=== PATIENT | male | born 1945 | race Caucasian/White ===

== ENCOUNTER 2017-04-16 16:25 | Emergency (ER) | payer OTHER ==
[~2017-04-16] VITALS: Wt 107.3 kg
[~2017-04-16 16:25] MED LIST: APIX5TAB PO; ATOR20TA38 PO; CARV6.25 PO; LANT3I SC; LEVOTHYROXINE PO; LOSARTAN PO; METF500T4 PO; NOVO3I SC; SITA50TA2 PO
[2017-04-16 16:40] VITALS: Wt 107.3 kg
[2017-04-16] MEDS ORDERED: SOD CHLORIDE 0.9% 1,000 ML IV STA (17:26)
[2017-04-16 17:53] LABS: BASOPHILS % 0.4 % (0.0-2.0); EOSINOPHILS # 0.2 10^3/ul (0.0-0.5); EOSINOPHILS % 2.3 % (0.0-7.0); HEMOGLOBIN 13.2 g/dl (14.0-18.0); LYMPHOCYTES # 2.1 10^3/ul (0.8-2.9); LYMPHOCYTES % 20.9 % (15.0-51.0); MEAN CORPUSCULAR HGB CONC 33.8 g/dl (32.0-37.0); MEAN CORPUSCULAR VOLUME 91.5 fl (82.0-101.0); MEAN PLATELET VOLUME 9.8 fl (7.4-10.4); MONOCYTE # 0.8 10^3/ul (0.3-0.9); MONOCYTES % 8.4 % (0.0-11.0); NEUTROPHILS % 67.6 % (39.0-77.0); PLATELET COUNT 199 10^3/UL (140-415); RED BLOOD COUNT 4.26 10^6/ul (4.70-6.10); RED CELL DISTRIBUTION WIDTH 13.4 % (11.5-14.5); WHITE BLOOD COUNT 9.9 10^3/ul (4.8-10.8)
[2017-04-16 18:13] LABS: ALBUMIN 4.2 g/dl (3.3-4.9); ALBUMIN/GLOBULIN RATIO 1.35; BILIRUBIN,INDIRECT 0.4 mg/dl (0-1.1); BILIRUBIN,TOTAL 0.4 mg/dl (0.2-1.3); CALCIUM 9.2 mg/dl (8.4-10.2); CREATININE 2.68 mg/dl (0.61-1.24); POTASSIUM 4.8 mmol/L (3.5-5.1); TOTAL PROTEIN 7.3 g/dl (6.1-8.1)
[2017-04-16 18:49] LABS: ADD UMIC YES; UR ASCORBIC ACID NEGATIVE (NEGATIVE); UR BACTERIA FEW /HPF (NONE SEEN); UR BILIRUBIN (Dip) NEGATIVE (NEGATIVE); UR BLOOD (Dip) NEGATIVE (NEGATIVE); UR CLARITY CLEAR (CLEAR); UR COLOR YELLOW (YELLOW); UR GLUCOSE (Dip) 3+ mg/dL (NEGATIVE); UR KETONES (Dip) NEGATIVE (NEGATIVE); UR LEUKOCYTE ESTERASE (Dip) TRACE Leu/ul (NEGATIVE); UR MUCUS FEW /HPF (NONE SEEN); UR NITRITE (Dip) NEGATIVE (NEGATIVE); UR RBC 1 /HPF (0-5); UR SPECIFIC GRAVITY (Dip) 1.014 (1.003-1.030); UR SQUAMOUS EPITHELIAL CELL FEW /HPF (FEW); UR TOTAL PROTEIN (Dip) NEGATIVE (NEGATIVE); UR UROBILINOGEN (Dip) NEGATIVE (NEGATIVE)
[2017-04-16] MEDS ORDERED: SOD CHLORIDE 0.9% 1,000 ML IV ONE (18:53)
--- NOTE | 2017-04-16 19:08 | ERD ---
ER Documentation Chief Complaint Date/Time DATE: 04/16/17 TIME: 19:03 Chief Complaint strtd new diabetic meds 3 wks ago, no appet/esophgeal discomfort post mds HPI 72-year-old male presents with complaints of decreased appetite, fatigue which he believes is related to starting 3 new diabetes medications at the same time 3 weeks ago. He also says some irritation of his esophageal area which he feels is related to at least 1 of the tablet being too big .. He is able to swallow and tolerate p.o.'s and food, however. Prescribing physician was Dr. Cary. His new medications are Glucophage, INVOKANA, TRULICITY . He gets systolics injection once per week as well. Denies any sustained chest pain, vomiting, headaches, abdominal pain. ROS All systems reviewed and are negative except as per history of present illness. Medications Home Meds Active Scripts Insulin Aspart* (Novolog Insulin Pen*) 100 Unit/Ml Soln, 9 UNIT SC WITH MEALS for 30 Days Prov:JACINTO SNEED NP 10/18/15 Insulin Glargine* (Lantus*) 100 Unit/Ml Soln, 24 UNIT SC HS for 30 Days Prov:JACINTO SNEED NP 10/18/15 Metformin Hcl* (Metformin Hcl*) 500 Mg Tablet, 500 MG PO BID WITH MEALS, #30 TAB Prov:JACINTO SNEED NP 10/18/15 Sitagliptin* (Januvia*) 50 Mg Tab, 100 MG PO DAILY for 30 Days, TAB Prov:JACINTO SNEED NP 10/18/15 Carvedilol* (Coreg*) 6.25 Mg Tab, 3.125 MG PO BID for 30 Days, TAB Prov:JACINTO SNEED NP 10/18/15 Atorvastatin Calcium* (Atorvastatin Calcium*) 20 Mg Tab, 20 MG PO HS for 30 Days , TAB Prov:JACINTO SNEED NP 10/18/15 Apixaban* (Eliquis*) 5 Mg Tablet, 5 MG PO BID for 30 Days, TAB Prov:JACINTO SNEED NP 10/18/15 Reported Medications [Losartan ] No Conflict Check, 100 MG PO DAILY 06/02/13 [Levothyroxine] No Conflict Check, 75 MCG PO DAILY 06/02/13 Allergies Allergies: Coded Allergies: No Known Allergy (Unverified , 06/02/13) PMhx/Soc History of Surgery: No (Cataract surgery) Anesthesia Reaction: Yes Hx Neurological Disorder: No Hx Respiratory Disorders: No Hx Cardiac Disorders: Yes (atrial fib) Hx Psychiatric Problems: No Hx Miscellaneous Medical Probl: No Hx Alcohol Use: No Hx Substance Use: No Hx Tobacco Use: No Smoking Status: Never smoker Physical Exam Vitals Vital Signs Date Time Temp Pulse Resp B/P Pulse Ox O2 Delivery O2 Flow Rate FiO2 04/16/17 16:40 98.0 65 20 99/54 98 Physical Exam Const: [], [id number]. Head: Atraumatic Eyes: Normal Conjunctiva ENT: Normal External Ears, Nose and Mouth. Neck: Full range of motion..~ No meningismus. Resp: Clear to auscultation bilaterally Cardio: Regular rate and rhythm, no murmurs Abd: Soft, non tender, non distended. Normal bowel sounds Skin: No petechiae or rashes Back: No midline or flank tenderness Ext: No cyanosis, or edema Neur: Awake and alert Psych: Normal Mood and Affect Result Diagram: 04/16/17 1735 04/16/17 1735 Results 24 hrs Laboratory Tests Test 04/16/17 17:35 04/16/17 17:53 White Blood Count 9.910^3/ul Red Blood Count 4.2610^6/ul Hemoglobin 13.2g/dl Hematocrit 39.0% Mean Corpuscular Volume 91.5fl Mean Corpuscular Hemoglobin 31.0pg Mean Corpuscular Hemoglobin Concent 33.8g/dl Red Cell Distribution Width 13.4% Platelet Count 40144^3/UL Mean Platelet Volume 9.8fl Neutrophils % 67.6% Lymphocytes % 20.9% Monocytes % 8.4% Eosinophils % 2.3% Basophils % 0.4% Nucleated Red Blood Cells % 0.0/100WBC Neutrophils # (Manual) 710^3/ul Lymphocytes # 2.110^3/ul Monocytes # 0.810^3/ul Eosinophils # 0.210^3/ul Basophils # 0.010^3/ul Nucleated Red Blood Cells # 0.010^3/ul Sodium Level 136mmol/L Potassium Level 4.8mmol/L Chloride Level 108mmol/L Carbon Dioxide Level 16mmol/L Anion Gap 17 Blood Urea Nitrogen 40mg/dl Creatinine 2.68mg/dl Glucose Level 159mg/dl Calcium Level 9.2mg/dl Total Bilirubin 0.4mg/dl Direct Bilirubin 0.00mg/dl Indirect Bilirubin 0.4mg/dl Aspartate Amino Transf (AST/SGOT) 13IU/L Alanine Aminotransferase (ALT/SGPT) 30IU/L Alkaline Phosphatase 125IU/L Total Protein 7.3g/dl Albumin 4.2g/dl Globulin 3.10g/dl Albumin/Globulin Ratio 1.35 Lipase 148U/L Urine Color YELLOW Urine Clarity CLEAR Urine pH 5.0 Urine Specific [place] 1.014 Urine Ketones NEGATIVEmg/dL Urine Nitrite NEGATIVEmg/dL Urine Bilirubin NEGATIVEmg/dL Urine Urobilinogen NEGATIVEmg/dL Urine Leukocyte Esterase TRACELeu/ul Urine Microscopic RBC 1/HPF Urine Microscopic WBC 8/HPF Urine Squamous Epithelial Cells FEW/HPF Urine Bacteria FEW/HPF Urine Mucus FEW/HPF Urine Hemoglobin NEGATIVEmg/dL Urine Glucose 3+mg/dL Urine Total Protein NEGATIVEmg/dl Current Medications Medications (Trade) Dose Ordered Sig/Zuleyma Route PRN Reason Start Time Stop Time Status Last Admin Dose Admin Sodium Chloride 1,000 ml @ 1,000 mls/hr Q1H STAT IV 04/16/17 17:26 04/16/17 18:25 DC 04/16/17 17:46 Sodium Chloride (NS) 1,000 ml @ 0 mls/hr Q0M ONCE IV 04/16/17 18:53 04/16/17 19:08 DC Procedures/MDM EKG: Rate/Rhythm: Irregular rhythm with atrial fibrillation. Rate equals 72 QRS, ST, T-waves: [No changes consistent w/ acute ischemia] Impression: [No evidence of ischemia or arrhythmia]. Impression-rate controlled atrial fibrillation CBC shows no acute abnormalities. Glucose is 159. BUN and creatinine are 40 and 2.68. Bicarb is 16. Urine is negative for ketones. There are trace leukocytes and a few bacteria. Urine was sent for culture. Patient was given 1 L normal saline IV. Patient presents with multiple complaints possibly related to new diabetes regimen. Patient shows no signs of ketoacidosis or other emergent condition related to his presenting complaints. No evidence of esophageal obstruction, signs of pulmonary embolism, acute coronary syndromE. 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 He is advised to eat small meals as regularly scheduled despite appetite. I suggested decreased appetite may be a normal effect of his new medication. The patient was stable with no new complaints during the ER course. Clinically, there is no current evidence to suggest meningitis, sepsis, acute abdomen, pneumonia, acute coronary syndrome, pulmonary embolism, or any other emergent condition appearing to require further evaluation or hospitalization. The patient should certainly return for any new or worsening symptoms per the aftercare instructions. They should otherwise follow-up with her primary care doctor for reevaluation this week. Departure Diagnosis: Primary Impression: Diabetes mellitus type 2 in obese Additional Impression: Loss of appetite Condition: Stable Patient Instructions: DIABETES, General Info Additional Instructions: Recommend continuing medication, take medication with plenty of water following up with residential support specialist or primary care doctor for evaluation of medication regimen. No acute abnormalities on evaluation today. MEHREEN DOWNING MD Apr 16, 2017 19:07
[2017-04-16 19:20] VITALS: BP 128/61; PULSE 87; RESP 18; TEMP 98.1
== END 2017-04-16 19:20 | disposition home or self-care (01) ==
LOC: FTE 16:25
DX: E11.9 Type 2 diabetes mellitus without complications (principal); R63.0 Anorexia; E66.9 Obesity, unspecified; Z79.4 Long term (current) use of insulin; Z79.01 Long term (current) use of anticoagulants; Z79.84 Long term (current) use of oral hypoglycemic drugs
CPT/HCPCS: 36415; 80053; 81001; 83690; 85025; 93005; 99284; J7030

== ENCOUNTER 2017-06-17 14:00 | Inpatient (IN) | payer OTHER ==
[~2017-06-17] VITALS: Ht 172.7 cm; Wt 104.3 kg
--- NOTE | 2017-06-17 16:27 | RADRPT ---
PROCEDURE: XR Chest. CLINICAL INDICATION: Sepsis. TECHNIQUE: Single frontal view. COMPARISON: 10/15/2015. FINDINGS: The lungs are clear. The heart size is normal. There is no pleural effusion. There is no pneumothorax. IMPRESSION: 1. Normal chest radiograph. 2. No change from 10/15/2015. RPTAT: QQ .Timbo William MD, MD Date Time Electronically viewed and signed by .Timbo William MD, MD on 06/17/2017 16:27 .R/
[2017-06-17 17:06] LABS: ABNORMAL IP MESSAGE 1; BASOPHIL # 0.1 10^3/ul (0.0-0.1); BASOPHILS % 0.3 % (0.0-2.0); EOSINOPHILS % 0.1 % (0.0-7.0); HEMATOCRIT 33.6 % (42.0-52.0); HEMOGLOBIN 11.3 g/dl (14.0-18.0); LYMPHOCYTES # 1.5 10^3/ul (0.8-2.9); LYMPHOCYTES % 7.9 % (15.0-51.0); MEAN CORPUSCULAR HEMOGLOBIN 31.1 pg (29.0-33.0); MEAN CORPUSCULAR HGB CONC 33.6 g/dl (32.0-37.0); MEAN CORPUSCULAR VOLUME 92.6 fl (82.0-101.0); MEAN PLATELET VOLUME 10.7 fl (7.4-10.4); MONOCYTE # 1.9 10^3/ul (0.3-0.9); MONOCYTES % 9.6 % (0.0-11.0); NEUTROPHIL # 15.9 10^3/ul (1.6-7.5); NEUTROPHILS % 80.8 % (39.0-77.0); PLATELET COUNT 153 10^3/UL (140-415); POSITIVE DIFF @See below; RED BLOOD COUNT 3.63 10^6/ul (4.70-6.10); RED CELL DISTRIBUTION WIDTH 13.2 % (11.5-14.5); WHITE BLOOD COUNT 19.6 10^3/ul (4.8-10.8)
[2017-06-17 17:30] LABS: ALBUMIN 3.5 g/dl (3.3-4.9); ALBUMIN/GLOBULIN RATIO 1.02; BILIRUBIN,INDIRECT 0.7 mg/dl (0-1.1); BILIRUBIN,TOTAL 0.7 mg/dl (0.2-1.3); CALCIUM 8.6 mg/dl (8.4-10.2); CREATININE 3.28 mg/dl (0.61-1.24); POTASSIUM 4.6 mmol/L (3.5-5.1); TOTAL PROTEIN 6.9 g/dl (6.1-8.1)
[2017-06-17 17:35] LABS: PT RATIO 1.5
[2017-06-17 17:36] LABS: PARTIAL THROMBOPLASTIN TIME 32.2 Sec (25.0-35.0)
[2017-06-17 17:40] LABS: TROPONIN-I 0.013 ng/ml (0.00-0.12)
[2017-06-17 17:51] LABS: INR 1.54; PROTIME 18.6 Sec (12.2-14.2)
[2017-06-17] MEDS ORDERED: VANCOMYCIN 1 GM (PMX) 250 ML IVPB SCH (18:00)
[2017-06-17] MEDS ORDERED: PIPER-TAZO 2.25 GM (PMX) 50 ML IVPB ONE (18:00)
--- NOTE | 2017-06-17 18:23 | RADRPT ---
PROCEDURE: CT of the abdomen and pelvis without contrast CLINICAL INDICATION: Sepsis. TECHNIQUE: Spiral CT images through the abdomen and pelvis without the use of oral and without the use of intravenous contrast. The administered radiation dose is CTDI 19.90 and DLP 1257.65. One or more of the following dose reduction techniques were used: automated exposure control, adjustment o f the mA and/or kV according to patient size, or use of iterative reconstruction technique. COMPARISON: None FINDINGS: The study is limited by lack of intravenous contrast. Lower thorax: Slight dependent atalectasis of the lung bases is seen.. Cardiomegaly. Small pericardi al effusion. No pleural effusion. Liver: The liver is unremarkable in appearance. Biliary: 1.7 cm gallstone.. No biliary ductal dilatation is seen. Pancreas: Unremarkable. No focal mass or inflammatory process. Spleen: The spleen is unremarkable in appearance Adrenal glands: Unremarkable in appearance. No focal nodule.. Genitourinary: No hydronephrosis or renal calculi are seen.. Bilateral probable renal cortical cysts are seen. Largest is off the upper pole of the right kidney measures 4.7 cm. Mild left renal cortic al atrophy. Few tiny nonobstructing calyceal stones in the lower pole left kidney. The bladder is re latively empty and slightly trabeculated. No bladder stones or definite masses.. Gastrointestinal Tract: There is no evidence for bowel obstruction, free air, or abscess. The appen jacque is unremarkable in appearance. Lymph nodes: No adenopathy is seen... Vascular structures: Mild atherosclerotic vascular calcification. IVC filter.. Peritoneal cavity: Unremarkable mesentery and peritoneum.. No mass, edema, or ascites. Reproductive Organs: Slightly enlarged prostate with metallic seeds within.. Musculoskeletal: Degenerative change of the spine.. IMPRESSION: Small bilateral renal cysts and tiny nonobstructing left renal stones. No definite acute abnormality .. RPTAT: [facility] Physician Fadi Date Time Electronically viewed and signed by Carly Anderson Physician on 06/17/2017 18:23 LE/
[2017-06-17] MEDS ORDERED: OMEP20CA16 PO (18:48)
[2017-06-17] MEDS ORDERED: APIX5TAB PO (18:48)
[2017-06-17] MEDS ORDERED: CARV25TA79 PO (18:48)
[2017-06-17] MEDS ORDERED: OMEG1CAP2 PO (18:49)
[2017-06-17] MEDS ORDERED: TAMS0.4C2 PO (18:49)
[2017-06-17] MEDS ORDERED: DIGO125T PO (18:49)
[2017-06-17] MEDS ORDERED: LANT3I SC (18:50)
[2017-06-17] MEDS ORDERED: NOVO3I SC (18:53)
[2017-06-17 19:08] LABS: ADD UMIC YES; UR ASCORBIC ACID NEGATIVE (NEGATIVE); UR BACTERIA FEW /HPF (NONE SEEN); UR BILIRUBIN (Dip) NEGATIVE (NEGATIVE); UR BLOOD (Dip) 2+ mg/dL (NEGATIVE); UR CLARITY SLIGHTLY CLOUDY (CLEAR); UR COLOR YELLOW (YELLOW); UR GLUCOSE (Dip) 2+ mg/dL (NEGATIVE); UR KETONES (Dip) NEGATIVE (NEGATIVE); UR LEUKOCYTE ESTERASE (Dip) 2+ Leu/ul (NEGATIVE); UR NITRITE (Dip) NEGATIVE (NEGATIVE); UR RBC 10 /HPF (0-5); UR SPECIFIC GRAVITY (Dip) 1.017 (1.003-1.030); UR SQUAMOUS EPITHELIAL CELL FEW /HPF (FEW); UR TOTAL PROTEIN (Dip) 1+ mg/dl (NEGATIVE); UR UROBILINOGEN (Dip) 1+ mg/dL (NEGATIVE)
--- NOTE | 2017-06-17 19:18 | HP ---
Date/Time of Note Date/Time of Note DATE: 06/17/17 TIME: 19:11 Assessment/Plan VTE Prophylaxis VTE Prophylaxis Intervention: LMWH (Or Eliquis) Assessment/Plan Chief Complaint/Hosp Course 1. Sirs/suspected sepsis. Flu vs complicated cystitis. Stable check KUB and influenza testing. Continue hydration and empiric antibiotics. 2. Shock: Septic vs hypovolemic 3. Influenza? 4. Obstructive uropathy/stones? Check KUB 5. Chronic afibrillation 6. Chronic diabetes metabolic syndrome 7. Acute renal failure on CKD 8. Past tobacco 9. Possible COPD 10. Past alcohol 11. History of prostate cancer/radiation 12. Anemia Problems: HPI/ROS Admit Date/Time Admit Date/Time Hx of Present Illness 72-year-old gentleman who has had 2 days of weakness chills complete body aches. No known aggravating or relieving factors. No ill contacts no travel. No sore throat. Positive headache diarrhea. No tom cough. No tom dysuria. Was seen or called his primary yesterday. Unfortunately symptoms continued and patient could not stay at home any longer. He was recommended to stay hydrated and rest. States he did have his flu shot recently. No photophobia or sound sensitivity or next stiffness. ER: Initial blood pressure 200 and then systolic 90s. Chronic atrial fibrillation on EKG. ROS Neuro: Headache no loss of speech or vision Cardiovascular: No dyspnea edema chest pain Lungs: No cough no wheezing edema positive fever Abdomen positive diarrhea. No constipation nausea vomiting Genitourinary: No hematuria abdominal pain positive fever Muscular skeletal: Body aches weakness recently. No rash no edema Endocrine: Diabetes metabolic syndrome hypothyroidism dyslipidemia Psychiatry: Stable mood no anxiety no agitation Hematological symptoms no hematochezia hemoptysis melena hematuria Constitutional: Fever chills no weight loss that I am aware PMH/Family/Social Past Medical History Atrial fibrillation Nephrolithiasis? Past tobacco Past alcoholism Metabolic syndrome Cancer prostate. Radiation therapy Medical History: diabetes, high cholesterol, hypertension, hypothyroid, renal disease (CKD) Social History Alcohol Use: other (Past alcoholism) Smoking Status: Former smoker Exam/Review of Systems Vital Signs Vitals Vital Signs Date Time Temp Pulse Resp B/P Pulse Ox O2 Delivery O2 Flow Rate FiO2 06/17/17 18:30 97.7 85 18 97/51 97 Room Air Exam Exam No pallor icterus adenopathy or carotid bruits Regular irregular no murmur rub gallop Clear bilaterally Bs+nt nd no r/r/g. CVAT? None noted at present Ext: no Homans sign or edema Labs Result Diagram: 06/17/17 1630 06/17/17 1630 Medications Medications Current Medications Vancomycin HCl (Vancocin) 250 ml @ 125 mls/hr ONCE IVPB ; Start 06/17/17 at 18 :00; Stop 06/17/17 at 19:59 Sodium Chloride 500 ml 500 ml ONCE IV ; Start 06/17/17 at 19:30; Status UNV Sodium Chloride (NS) 1,000 ml @ 125 mls/hr Q8H IV ; Start 06/17/17 at 19:03; Status UNV Ondansetron HCl (Zofran Inj) 4 mg Q6H PRN IV NAUSEA AND/OR VOMITING; Start at 19:30; Status UNV Acetaminophen (Tylenol Tab) 650 mg Q6H PRN PO PAIN LEVEL 1-3 OR FEVER; Start 06/17/17 at 19:30; Status UNV Acetaminophen/ Hydrocodone Bitart (Aurora (5/325)) 1 tab Q6H PRN PO MODERATE PAIN LEVEL 4-6; Start 06/17/17 at 19:30; Status UNV Morphine Sulfate (morphine) 2 mg Q4H PRN IV SEVERE PAIN LEVEL 7-10; Start at 19:30; Status UNV Docusate Sodium (Colace) 100 mg Q12H PRN PO CONSTIPATION; Start 06/17/17 at 19 :30; Status UNV Bisacodyl (Dulcolax) 5 mg DAILY PRN PO CONSTIPATION; Start 06/17/17 at 19:30; Status UNV Bisacodyl (Dulcolax Supp) 10 mg DAILY PRN DC CONSTIPATION; Start 06/17/17 at 19:30; Status UNV Famotidine (Pepcid) 20 mg Q12 PO ; Start 06/17/17 at 21:00; Status UNV Enoxaparin Sodium (Lovenox) 120 mg DAILY SC ; Start 06/17/17 at 19:30; Status UNV Miscellaneous Information (* Miscellaneous Pharmacy Order) Discontinue current oral sulfonylur... ONCE ONCE XX ; Start 10/24/17 at 19:30; Stop 06/17/17 at 19:31; Status UNV Diagnostic Test (Pha) (Accu-Chek) 1 ea XX ; Start 06/18/17 at 02:00; Status UNV Miscellaneous Information (* Miscellaneous Pharmacy Order) HYPOGLYCEMIA PROTOCOL w... ONCE ONCE XX ; Start 06/17/17 at 19:30; Stop 06/17/17 at 19:31 ; Status UNV Miscellaneous Information Discontinue all previ... ONCE ONCE XX ; Start at 19:30; Stop 06/17/17 at 19:31; Status UNV Piperacillin Sod/ Tazobactam Sod (Zosyn 2.25gm/ 50ml (Pmx)) 50 ml @ 100 mls/hr ONCE ONCE IVPB ; Start 06/17/17 at 19:30; Stop 06/17/17 at 19:59; Status UNV DUSTIN LIPSCOMB MD Jun 17, 2017 19:18
--- NOTE | 2017-06-17 19:21 | ERD ---
ER Documentation Chief Complaint Chief Complaint FEVER AND DIARRHEA SINCE YESTERDAY. DENIES AP, N/V HPI The patient is a 72-year-old male, presenting to the ER because of diarrhea for the last couple days with subjective fever. He denies fever, complains of chill , denies neck pain, chest pain, dyspnea, abdominal pain, vomiting, dysuria. She does not smoke nor drink Past medical history: Diabetes mellitus, prostate cancer, dyslipidemia, hypertension, hypothyroidism Past Surgical history: Prostatectomy ROS All systems reviewed and are negative except as per history of present illness. Medications Home Meds Active Scripts Apixaban* (Eliquis*) 5 Mg Tablet, 5 MG PO BID for 30 Days, TAB Prov:JACINTO SNEED CERTIFIED NUTRITIONIST 10/18/15 Reported Medications Insulin Aspart* (Novolog Insulin Pen*) 100 Unit/Ml Soln, 0 SC .SLIDING SCALE AC , EA TAKE 12 UNITS-QAM, 12 UNITS-NOON, 28 UNITS-QPM 06/17/17 Insulin Glargine* (Lantus*) 100 Unit/Ml Soln, 38 UNIT SC QHS, #1 VIAL 06/17/17 [place]-3 Acid Ethyl Esters (Lovaza) 1 Gm Capsule, 1 GM PO TID, CAP 06/17/17 Digoxin* (Digitek*) 125 Mcg Tablet, 0.125 MG PO DAILY, TAB 06/17/17 Tamsulosin Hcl* (Tamsulosin Hcl*) 0.4 Mg Cap.er.24h, 0.4 MG PO DAILY, CAP 06/17/17 Omeprazole* (Omeprazole*) 20 Mg Capsule.dr, 20 MG PO DAILY, #30 CAP 06/17/17 Carvedilol* (Carvedilol*) 25 Mg Tablet, 25 MG PO BID, #60 TAB 06/17/17 Apixaban* (Eliquis*) 5 Mg Tablet, 5 MG PO BID, TAB 06/17/17 Discontinued Reported Medications [Losartan ] No Conflict Check, 100 MG PO DAILY 06/02/13 [Levothyroxine] No Conflict Check, 75 MCG PO DAILY 06/02/13 Discontinued Scripts Insulin Aspart* (Novolog Insulin Pen*) 100 Unit/Ml Soln, 9 UNIT SC WITH MEALS for 30 Days Prov:JACINTO SNEED CERTIFIED NUTRITIONIST 10/18/15 Insulin Glargine* (Lantus*) 100 Unit/Ml Soln, 24 UNIT SC HS for 30 Days Prov:JACINTO SNEED CERTIFIED NUTRITIONIST 10/18/15 Metformin Hcl* (Metformin Hcl*) 500 Mg Tablet, 500 MG PO BID WITH MEALS, #30 TAB Prov:JACINTO SNEED CERTIFIED NUTRITIONIST 10/18/15 Sitagliptin* (Januvia*) 50 Mg Tab, 100 MG PO DAILY for 30 Days, TAB Prov:JACINTO SNEED CERTIFIED NUTRITIONIST 10/18/15 Carvedilol* (Coreg*) 6.25 Mg Tab, 3.125 MG PO BID for 30 Days, TAB Prov:JACINTO SNEED CERTIFIED NUTRITIONIST 10/18/15 Atorvastatin Calcium* (Atorvastatin Calcium*) 20 Mg Tab, 20 MG PO HS for 30 Days , TAB Prov:JACINTO SNEED CERTIFIED NUTRITIONIST 10/18/15 Allergies Allergies: Coded Allergies: No Known Allergy (Unverified , 06/17/17) PMhx/Soc History of Surgery: No (Cataract surgery) Anesthesia Reaction: Yes Hx Neurological Disorder: No Hx Respiratory Disorders: No Hx Cardiac Disorders: Yes (A FIB, HTN, DM) Hx Psychiatric Problems: No Hx Miscellaneous Medical Probl: No (PROSTATE CA-CHEMO 2011) Hx Alcohol Use: No Hx Substance Use: No Hx Tobacco Use: No Smoking Status: Never smoker Physical Exam Vitals Vital Signs Date Time Temp Pulse Resp B/P Pulse Ox O2 Delivery O2 Flow Rate FiO2 06/17/17 18:30 97.7 85 18 97/51 97 Room Air 06/17/17 14:07 99.8 85 18 226/107 96 Physical Exam Const: No acute distress. Head: Atraumatic. Eyes: Normal Conjunctiva. ENT: Normal External Ears, Nose and Mouth. Neck: Full range of motion. No meningismus. Resp: Irregularly irregular Cardio: Regular rate and rhythm. Abd: Soft, non distended, normal bowel sounds, non tender. Skin: No petechiae or rashes. Back: No midline or flank tenderness. Ext: No cyanosis, or edema. Neur: Awake and alert. No focal deficit Psych: Normal Mood and Affect. Result Diagram: 06/17/17 1630 06/17/17 1630 Results 24 hrs Laboratory Tests Test 06/17/17 16:30 06/17/17 18:30 White Blood Count 19.610^3/ul Red Blood Count 3.6310^6/ul Hemoglobin 11.3g/dl Hematocrit 33.6% Mean Corpuscular Volume 92.6fl Mean Corpuscular Hemoglobin 31.1pg Mean Corpuscular Hemoglobin Concent 33.6g/dl Red Cell Distribution Width 13.2% Platelet Count 44503^3/UL Mean Platelet Volume 10.7fl Neutrophils % 80.8% Lymphocytes % 7.9% Monocytes % 9.6% Eosinophils % 0.1% Basophils % 0.3% Nucleated Red Blood Cells % 0.0/100WBC Neutrophils # 15.910^3/ul Lymphocytes # 1.510^3/ul Monocytes # 1.910^3/ul Eosinophils # 0.010^3/ul Basophils # 0.110^3/ul Nucleated Red Blood Cells # 0.010^3/ul Prothrombin Time 18.6Sec Prothrombin Time Ratio 1.5 INR International Normalized Ratio 1.54 Activated Partial Thromboplast Time 32.2Sec Sodium Level 134mmol/L Potassium Level 4.6mmol/L Chloride Level 103mmol/L Carbon Dioxide Level 18mmol/L Anion Gap 18 Blood Urea Nitrogen 46mg/dl Creatinine 3.28mg/dl Glucose Level 390mg/dl Lactic Acid Level 2.2mmol/L Calcium Level 8.6mg/dl Total Bilirubin 0.7mg/dl Direct Bilirubin 0.00mg/dl Indirect Bilirubin 0.7mg/dl Aspartate Amino Transf (AST/SGOT) 9IU/L Alanine Aminotransferase (ALT/SGPT) 30IU/L Alkaline Phosphatase 88IU/L Troponin I 0.013ng/ml Total Protein 6.9g/dl Albumin 3.5g/dl Globulin 3.40g/dl Albumin/Globulin Ratio 1.02 Urine Color YELLOW Urine Clarity SLIGHTLY CLOUDY Urine pH 5.0 Urine Specific [place] 1.017 Urine Ketones NEGATIVEmg/dL Urine Nitrite NEGATIVEmg/dL Urine Bilirubin NEGATIVEmg/dL Urine Urobilinogen 1+mg/dL Urine Leukocyte Esterase 2+[place]/ul Urine Microscopic RBC 10/HPF Urine Microscopic WBC 33/HPF Urine Squamous Epithelial Cells FEW/HPF Urine Bacteria FEW/HPF Urine Hemoglobin 2+mg/dL Urine Glucose 2+mg/dL Urine Total Protein 1+mg/dl Current Medications Medications (Trade) Dose Ordered Sig/Zuleyma Route PRN Reason Start Time Stop Time Status Last Admin Dose Admin Vancomycin HCl 250 ml @ 125 mls/hr ONCE IVPB 06/17/17 18:00 06/17/17 19:59 Piperacillin Sod/ Tazobactam Sod (Zosyn 2.25gm/ 50ml (Pmx)) 50 ml @ 100 mls/hr ONCE ONCE IVPB 06/17/17 18:00 06/17/17 18:29 DC 06/17/17 18:56 Sodium Chloride 500 ml 500 ml ONCE IV 06/17/17 19:30 UNV Sodium Chloride (NS) 1,000 ml @ 125 mls/hr Q8H IV 06/17/17 19:03 UNV IV Flush (NS 3 ml) 3 ml PER PROTOCOL IV 06/17/17 19:30 UNV Ondansetron HCl (Zofran Inj) 4 mg Q6H PRN IV NAUSEA AND/OR VOMITING 06/17/17 19:30 UNV Acetaminophen (Tylenol Tab) 650 mg Q6H PRN PO PAIN LEVEL 1-3 OR FEVER 06/17/17 19:30 UNV Acetaminophen/ Hydrocodone Bitart ([place] (5/325)) 1 tab Q6H PRN PO MODERATE PAIN LEVEL 4-6 06/17/17 19:30 UNV Morphine Sulfate (morphine) 2 mg Q4H PRN IV SEVERE PAIN LEVEL 7-10 06/17/17 19:30 UNV Docusate Sodium (Colace) 100 mg Q12H PRN PO CONSTIPATION 06/17/17 19:30 UNV Bisacodyl (Dulcolax) 5 mg DAILY PRN PO CONSTIPATION 06/17/17 19:30 UNV Bisacodyl (Dulcolax Supp) 10 mg DAILY PRN NM CONSTIPATION 06/17/17 19:30 UNV Famotidine (Pepcid) 20 mg Q12 PO 06/17/17 21:00 UNV Enoxaparin Sodium (Lovenox) 120 mg DAILY SC 06/17/17 19:30 UNV Miscellaneous Information (* Miscellaneous Pharmacy Order) Discontinue current oral sulfonylur... ONCE ONCE XX 06/17/17 19:30 06/17/17 19:31 UNV Diagnostic Test (Pha) (Accu-Chek) 1 ea 02 XX 06/18/17 02:00 UNV Miscellaneous Information (* Miscellaneous Pharmacy Order) HYPOGLYCEMIA PROTOCOL w... ONCE ONCE XX 06/17/17 19:30 06/17/17 19:31 UNV Miscellaneous Information (* Miscellaneous Pharmacy Order) Discontinue all previ... ONCE ONCE XX 06/17/17 19:30 06/17/17 19:31 UNV Vancomycin HCl VANCOMYCIN PER PHARMACY PER PROTOCOL XX 06/17/17 19:30 UNV Piperacillin Sod/ Tazobactam Sod (Zosyn 2.25gm/ 50ml (Pmx)) 50 ml @ 100 mls/hr ONCE ONCE IVPB 06/17/17 19:30 06/17/17 19:59 UNV Procedures/MDM [place] [address] Radiology Main Line: [phone] DIAGNOSTIC IMAGING REPORT Patient: ANTONINA DALY : 1945 Age: 72 Sex: M MR #: [id number] DOS: 06/17/17 1191 Ordering MD: YOAN AGGARWAL MD Location: E/R Room/Bed: PROCEDURE: XR Chest. CLINICAL INDICATION: Sepsis. TECHNIQUE: Single frontal view. COMPARISON: 10/15/2015. FINDINGS: The lungs are clear. The heart size is normal. There is no pleural effusion. There is no pneumothorax. IMPRESSION: 1. Normal chest radiograph. 2. No change from 10/15/2015. RPTAT: QQ .Timbo William MD, MD Date Time Electronically viewed and signed by .Timbo William MD, on 06/17/2017 16:27 .R/ CC: YOAN AGGARWAL MD [place] [id number] Radiology Main Line: [phone] DIAGNOSTIC IMAGING REPORT Patient: ANTONINA DALY : 1945 Age: 72 Sex: M MR #: [id number] DOS: 06/17/17 7274 Ordering MD: YOAN AGGARWAL MD Location: E/R Room/Bed: PROCEDURE: CT of the abdomen and pelvis without contrast CLINICAL INDICATION: Sepsis. TECHNIQUE: Spiral CT images through the abdomen and pelvis without the use of oral and without the use of intravenous contrast. The administered radiation dose is CTDI 19.90 and DLP 1257.65. One or more of the following dose reduction techniques were used: automated exposure control, adjustment of the mA and/or kV according to patient size, or use of iterative reconstruction technique. COMPARISON: None FINDINGS: The study is limited by lack of intravenous contrast. Lower thorax: Slight dependent atalectasis of the lung bases is seen.. Cardiomegaly. Small pericardial effusion. No pleural effusion. Liver: The liver is unremarkable in appearance. Biliary: 1.7 cm gallstone.. No biliary ductal dilatation is seen. Pancreas: Unremarkable. No focal mass or inflammatory process. Spleen: The spleen is unremarkable in appearance Adrenal glands: Unremarkable in appearance. No focal nodule.. Genitourinary: No hydronephrosis or renal calculi are seen.. Bilateral probable renal cortical cysts are seen. Largest is off the upper pole of the right kidney measures 4.7 cm. Mild left renal cortical atrophy. Few tiny nonobstructing calyceal stones in the lower pole left kidney. The bladder is relatively empty and slightly trabeculated. No bladder stones or definite masses.. Gastrointestinal Tract: There is no evidence for bowel obstruction, free air, or abscess. The appendix is unremarkable in appearance. Lymph nodes: No adenopathy is seen... Vascular structures: Mild atherosclerotic vascular calcification. IVC filter.. Peritoneal cavity: Unremarkable mesentery and peritoneum.. No mass, edema, or ascites. Reproductive Organs: Slightly enlarged prostate with metallic seeds within.. Musculoskeletal: Degenerative change of the spine.. IMPRESSION: Small bilateral renal cysts and tiny nonobstructing left renal stones. No definite acute abnormality.. RPTAT: HLBE Physician Fadi Date Time Electronically viewed and signed by Physician Fadi on 06/17/2017 18 :23 LE/ CC: YOAN AGGARWAL MD MEDICAL MAKING DECISION: The patient is a 72-year-old male, presenting with acute severe sepsis, acute diarrhea, acute kidney injury. He was treated with Crooks catheter, vancomycin IV, Zosyn IV The differential diagnoses considered include but are not limited to cholelithiasis, cholecystitis, cystitis, pancreatitis, hepatitis, gastritis, peptic ulcer disease, gastric ulcer, appendicitis, diverticulitis, cholangitis, choledocholithiasis, partial small bowel obstruction, pneumonia, UTI, pyelonephritis. Admit MDM: Patient's infectious symptoms have not stabilized and the patient is at risk of rapid decompensation. The patient will be admitted for careful hydration, antibiotic therapy, and infectious source control. Severe Sepsis criteria: Infectious source: Unknown End organ damage indicated by: Lactate > 2.0 mmol/L Sepsis Management: Time of recognition of severe sepsis/septic shock:17:30 Within 3 hours of recognition: Blood cultures x 2 before broad-spectrum antibiotics: Yes 30 ml/kg NS bolus Not completed because he has concurrent acute kidney injury and concurrent accelerated hypertension Initial lactate 2.2 Repeat lactate pending Septic Shock Assessment: Any lactic acid > 4.0 no Persistent hypotension (SBP < 90 or 40 mmHg drop, MAP < 65) despite 30 mL/kg IV fluid bolusno Critical Care: Critical care time 35 minutes Emergent fluid management while maintaining close respiratory support. Provision of immediate and broad-spectrum antibiotic therapy. Simultaneous assessment for possible sources in order to direct targeted therapy. Consideration for invasive and chemical support to prevent cardiopulmonary collapse. Departure Diagnosis: Primary Impression: Severe sepsis Additional Impressions: Atrial fibrillation Diarrhea Anemia Condition: Stable Comments I discussed the findings with the patient. I discussed the patient with the on- call hospitalist Dr. Gan at [facility] Who was made aware of the lab, the treatment , the patient condition. The patient is admitted to [facility] Disclaimer: Inadvertent spelling and grammatical errors are likely due to EHR/ dictation software use and do not reflect on the overall quality of patient care. Also, please note that the electronic time recorded on this note does not necessarily reflect the actual time of the patient encounter. YOAN AGGARWAL MD Jun 17, 2017 19:21
[2017-06-17 19:30] VITALS: TEMP 97.7
[2017-06-17] MEDS ORDERED: ONDANSETRON 4 MG INJ IV PRN (19:30)
[2017-06-17] MEDS ORDERED: VANCOMYCIN IV PER PHARMACY XX SCH (19:30)
[2017-06-17] MEDS ORDERED: DOCUSATE SODIUM 100 MG CAP PO PRN (19:30)
[2017-06-17] MEDS ORDERED: BISACODYL (EC) 5 MG TAB PO PRN (19:30)
[2017-06-17] MEDS ORDERED: morphine 2 MG INJ IV PRN (19:30)
[2017-06-17] MEDS ORDERED: SODIUM CHLORIDE 0.9% 1L BAG IV SCH (19:30)
[2017-06-17] MEDS ORDERED: NACL 0.9% 3 ML SYG IV SCH (19:30)
[2017-06-17] MEDS ORDERED: BISACODYL 10 MG SUPP PR PRN (19:30)
[2017-06-17] MEDS ORDERED: ACETAMINOPHEN 325 MG TAB PO PRN (19:30)
[2017-06-17] MEDS ORDERED: HYDROCODONE/APAP (5/325) TAB PO PRN (19:30)
[2017-06-17 20:08] VITALS: Ht 172.7 cm; Wt 104.3 kg
--- NOTE | 2017-06-17 20:21 | RADRPT ---
PROCEDURE: XR Abdomen. CLINICAL INDICATION: Abdominal pain TECHNIQUE: AP abdomen x-rays, the supine exposures submitted to the PACS for review. COMPARISON: CT abdomen and pelvis 06/17/2017 FINDINGS: The bowel gas pattern is normal. There is no evidence of obstruction. No visceromegaly, soft tissue mass or pathologic calcification is demonstrated. The gallstones on the CT are not evident on plain film An inferior vena cava filter is again noted. Degenerative spondylosis of the lumbar spine is present. There is no evidence of acute osseous abnor mality. Metallic densities in the region of the prostate gland are again seen. RPTAT:HJJR IMPRESSION: 1. No evidence of acute intra-abdominal pathology or change from the CT from earlier the same day. 2. Inferior vena cava filter and metallic densities in the region of the prostate are again noted. Physician Christina Date Time Electronically viewed and signed by Physician Christina on 06/17/2017 20:21 /
[2017-06-17 20:29] VITALS: BP 112/56; RESP 20
[2017-06-17] MEDS ORDERED: DEXTROSE 50% 50 ML SYRINGE IV PRN ×2 (20:30)
[2017-06-17] MEDS ORDERED: ENOXAPARIN 100 MG/ML SYG SC SCH (20:30)
[2017-06-17] MEDS ORDERED: GLUCOSE GEL 15 GRAM TUBE BUCCAL PRN (20:30)
[2017-06-17] MEDS ORDERED: GLUCOSE GEL 15 GRAM TUBE PO PRN ×2 (20:30)
[2017-06-17] MEDS ORDERED: GLUCAGON 1 MG INJ IM PRN (20:30)
[2017-06-17 20:33] VITALS: PULSE 73
[2017-06-17 20:40] VITALS: BP 112/56; PULSE 80; RESP 18
[2017-06-17] MEDS ORDERED: INSULIN GLARGINE [LANtus] 3 ML PEN SC SCH (21:00)
[2017-06-17] MEDS: SOD CHLORIDE 0.9% 1,000 ML IV SCH (21:18)
[2017-06-17] MEDS: FAMOTIDINE 20 MG TAB PO SCH (21:20)
[2017-06-17] MEDS: TAMSULOSIN (SR) 0.4 MG CAP PO SCH (21:20)
[2017-06-17] MEDS ORDERED: VANCOMYCIN 1 GM in NS 250 ML IVPB SCH (21:30)
[2017-06-17] MEDS: PIPER-TAZO 2.25 GM (PMX) 50 ML IVPB SCH (22:27)
[2017-06-17] MEDS ORDERED: LOSA100T7 PO (23:04)
[2017-06-17] MEDS ORDERED: LEVO75TA5 PO (23:04)
[2017-06-17] MEDS ORDERED: INSULIN ASPART [NOVOLOG] 3 ML PEN SC ONE (23:30)
[2017-06-18] VITALS (11 sets, daily range): BP systolic 97–115; BP diastolic 53–63; PULSE 64–80; RESP 18–20
[2017-06-18] MEDS: SOD CHLORIDE 0.9% 1,000 ML IV SCH ×3 (03:03→20:26)
[2017-06-18] MEDS: ACCU-CHEK XX SCH (03:03)
[2017-06-18] MEDS: PANTOPRAZOLE (EC) 40 MG TAB PO SCH (05:44)
[2017-06-18] MEDS: PIPER-TAZO 2.25 GM (PMX) 50 ML IVPB SCH ×3 (05:44→23:15)
[2017-06-18 08:29] LABS: BASOPHILS % 0.3 % (0.0-2.0); EOSINOPHILS # 0.2 10^3/ul (0.0-0.5); EOSINOPHILS % 1.3 % (0.0-7.0); HEMATOCRIT 32.2 % (42.0-52.0); HEMOGLOBIN 10.8 g/dl (14.0-18.0); LYMPHOCYTES # 1.1 10^3/ul (0.8-2.9); MEAN CORPUSCULAR HEMOGLOBIN 31.1 pg (29.0-33.0); MEAN CORPUSCULAR HGB CONC 33.5 g/dl (32.0-37.0); MEAN CORPUSCULAR VOLUME 92.8 fl (82.0-101.0); MONOCYTE # 1.3 10^3/ul (0.3-0.9); MONOCYTES % 9.5 % (0.0-11.0); NEUTROPHIL # 10.6 10^3/ul (1.6-7.5); NEUTROPHILS % 80.3 % (39.0-77.0); PLATELET COUNT 129 10^3/UL (140-415); RED BLOOD COUNT 3.47 10^6/ul (4.70-6.10); RED CELL DISTRIBUTION WIDTH 13.2 % (11.5-14.5); WHITE BLOOD COUNT 13.2 10^3/ul (4.8-10.8)
[2017-06-18] MEDS: INSULIN ASPART [NOVOLOG] 3 ML PEN SC SCH ×3 (08:32→17:29)
[2017-06-18 08:41] LABS: INR 1.45; PROTIME 17.7 Sec (12.2-14.2); PT RATIO 1.4
[2017-06-18 08:45] LABS: MAGNESIUM 1.8 mg/dl (1.7-2.5); PHOSPHORUS 3.5 mg/dl (2.5-4.9)
[2017-06-18 08:48] LABS: ALBUMIN 2.6 g/dl (3.3-4.9); ALBUMIN/GLOBULIN RATIO 0.76; BILIRUBIN,INDIRECT 0.5 mg/dl (0-1.1); BILIRUBIN,TOTAL 0.5 mg/dl (0.2-1.3); CALCIUM 8.2 mg/dl (8.4-10.2); CREATININE 2.56 mg/dl (0.61-1.24); POTASSIUM 4.3 mmol/L (3.5-5.1)
[2017-06-18 09:15] LABS: THYROID STIMULATING HORMONE 2.8 MIU/L (0.465-4.680)
--- NOTE | 2017-06-18 13:45 | PN ---
Date/Time of Note Date/Time of Note DATE: 06/18/17 TIME: 13:16 Assessment/Plan VTE Prophylaxis VTE Prophylaxis Intervention: other Lines/Catheters IV Catheter Type (from Nrsg): Peripheral IV Assessment/Plan Assessment/Plan 1. Urinary tract infection, on antibiotics, follow up with urine culture 2. Sepsis, IVF and antibiotics 3. prostate cancer, s/p radiation, on flomax 4. DM, HbA1c 10.3, lantus and ISS 5. Acute on chronic renal failure, IVF, follow up with BMP 6. Normocytic anemia, chronic, CKD related 7. Hypothyroidism, on synthroid 8. Chronic atrial fibrillation with controlled VR, on coreg, eliquis 9. HTN, hold losartan and decrease coerg due to hypotension Exam/Review of Systems Vital Signs Vitals Vital Signs Date Time Temp Pulse Resp B/P Pulse Ox O2 Delivery O2 Flow Rate FiO2 06/18/17 12:13 74 06/18/17 11:40 98.3 18 98/53 96 06/17/17 20:40 Room Air 06/17/17 19:30 2.0 Intake and Output 06/17/17 06/17/17 06/18/17 15:00 23:00 07:00 Intake Total 375 ml 1125 ml Balance 375 ml 1125 ml Exam Constitutional: alert, oriented, well developed Psych: nl mood/affect, no complaints Head: atraumatic, normocephalic Eyes: EOMI, PERRL, nl conjunctiva, nl lids, nl sclera ENMT: nl external ears & nose, nl lips & teeth, nl nasal mucosa & septum Neck: non-tender, supple Respiratory: clear to auscultation, normal air movement, No congested cough, No crackles/rales, No diminished breath sounds, No intercostal retraction, No labored breathing, No other, No respirations, No tactile fremitus, No wheezing Cardiovascular: irregular rhythm Gastrointestinal: nl liver, spleen, non-tender, soft Musculoskeletal: nl extremities to inspection Extremities: normal pulses, No calf tenderness, No clubbing, No cyanosis, No edema, No other, No palpable cord, No pitting pedal edema, No tenderness Neurological: STAFF PSYCHIATRIST II-XII intact, nl mental status, nl speech, nl strength Results Result Diagram: 06/18/17 0752 06/18/17 0752 Results 24 hrs Laboratory Tests Test 06/17/17 16:30 06/17/17 18:30 06/17/17 22:17 06/17/17 22:35 White Blood Count 19.6 #H Red Blood Count 3.63 L Hemoglobin 11.3 L Hematocrit 33.6 L Mean Corpuscular Volume 92.6 Mean Corpuscular Hemoglobin 31.1 Mean Corpuscular Hemoglobin Concent 33.6 Red Cell Distribution Width 13.2 Platelet Count 153 # Mean Platelet Volume 10.7 H Neutrophils % 80.8 H Lymphocytes % 7.9 L Monocytes % 9.6 Eosinophils % 0.1 Basophils % 0.3 Nucleated Red Blood Cells % 0.0 Neutrophils # 15.9 H Lymphocytes # 1.5 Monocytes # 1.9 H Eosinophils # 0.0 Basophils # 0.1 Nucleated Red Blood Cells # 0.0 Prothrombin Time 18.6 H Prothrombin Time Ratio 1.5 INR International Normalized Ratio 1.54 Activated Partial Thromboplast Time 32.2 Sodium Level 134 L Potassium Level 4.6 Chloride Level 103 Carbon Dioxide Level 18 L Anion Gap 18 H Blood Urea Nitrogen 46 H Creatinine 3.28 H Glucose Level 390 H Lactic Acid Level 2.2 *H 1.1 Calcium Level 8.6 Total Bilirubin 0.7 Direct Bilirubin 0.00 Indirect Bilirubin 0.7 Aspartate Amino Transf (AST/SGOT) 9 L Alanine Aminotransferase (ALT/SGPT) 30 Alkaline Phosphatase 88 Troponin I 0.013 Total Protein 6.9 Albumin 3.5 Globulin 3.40 H Albumin/Globulin Ratio 1.02 Urine Color YELLOW Urine Clarity SLIGHTLY CLOUDY A Urine pH 5.0 Urine Specific [place] 1.017 Urine Ketones NEGATIVE Urine Nitrite NEGATIVE Urine Bilirubin NEGATIVE Urine Urobilinogen 1+ H Urine Leukocyte Esterase 2+ H Urine Microscopic RBC 10 H Urine Microscopic WBC 33 H Urine Squamous Epithelial Cells FEW Urine Bacteria FEW A Urine Hemoglobin 2+ H Urine Glucose 2+ H Urine Total Protein 1+ H Bedside Glucose 318 H Test 06/18/17 00:29 06/18/17 00:37 06/18/17 03:03 06/18/17 07:43 Bedside Glucose 303 H 248 H 220 Lactic Acid Level 1.0 Test 06/18/17 07:52 06/18/17 11:59 White Blood Count 13.2 #H Red Blood Count 3.47 L Hemoglobin 10.8 L Hematocrit 32.2 L Mean Corpuscular Volume 92.8 Mean Corpuscular Hemoglobin 31.1 Mean Corpuscular Hemoglobin Concent 33.5 Red Cell Distribution Width 13.2 Platelet Count 129 L Mean Platelet Volume 11.0 H Neutrophils % 80.3 H Lymphocytes % 8.0 L Monocytes % 9.5 Eosinophils % 1.3 Basophils % 0.3 Nucleated Red Blood Cells % 0.0 Neutrophils # 10.6 H Lymphocytes # 1.1 Monocytes # 1.3 H Eosinophils # 0.2 Basophils # 0.0 Nucleated Red Blood Cells # 0.0 Prothrombin Time 17.7 H Prothrombin Time Ratio 1.4 INR International Normalized Ratio 1.45 Sodium Level 139 Potassium Level 4.3 Chloride Level 113 H Carbon Dioxide Level 20 L Anion Gap 10 # Blood Urea Nitrogen 47 H Creatinine 2.56 H Glucose Level 222 #H Hemoglobin A1c 10.3 H Calcium Level 8.2 L Phosphorus Level 3.5 Magnesium Level 1.8 Total Bilirubin 0.5 Direct Bilirubin 0.00 Indirect Bilirubin 0.5 Aspartate Amino Transf (AST/SGOT) 11 L Alanine Aminotransferase (ALT/SGPT) 33 Alkaline Phosphatase 73 Total Protein 6.0 L Albumin 2.6 L Globulin 3.40 H Albumin/Globulin Ratio 0.76 Thyroid Stimulating Hormone (TSH) 2.800 Digoxin Level 1.0 Bedside Glucose 289 H Medications Medications Current Medications Sodium Chloride (NS) 1,000 ml @ 125 mls/hr Q8H IV Last administered on t 10:44; Admin Dose 125 MLS/HR; Start 06/17/17 at 19:03 Ondansetron HCl (Zofran Inj) 4 mg Q6H PRN IV NAUSEA AND/OR VOMITING; Start at 19:30 Acetaminophen (Tylenol Tab) 650 mg Q6H PRN PO PAIN LEVEL 1-3 OR FEVER; Start 06/17/17 at 19:30 Acetaminophen/ Hydrocodone Bitart ([place] (5/325)) 1 tab Q6H PRN PO MODERATE PAIN LEVEL 4-6; Start 06/17/17 at 19:30 Morphine Sulfate (morphine) 2 mg Q4H PRN IV SEVERE PAIN LEVEL 7-10; Start at 19:30 Docusate Sodium (Colace) 100 mg Q12H PRN PO CONSTIPATION; Start 06/17/17 at 19 :30 Bisacodyl (Dulcolax) 5 mg DAILY PRN PO CONSTIPATION; Start 06/17/17 at 19:30 Bisacodyl (Dulcolax Supp) 10 mg DAILY PRN MD CONSTIPATION; Start 06/17/17 at 19:30 Famotidine (Pepcid) 20 mg Q24H PO Last administered on 06/17/17 21:20; Admin Dose 20 MG; Start 06/17/17 at 21:00 Enoxaparin Sodium (Lovenox) 100 mg Q24H SC Last administered on 06/17/17 21: 23; Admin Dose 100 MG; Start 06/17/17 at 20:30 Diagnostic Test (Pha) 1 ea 1 ea 02 XX Last administered on 06/18/17 03:03; Admin Dose 1 EA; Start 06/18/17 at 02:00 Piperacillin Sod/ Tazobactam Sod (Zosyn 2.25gm/ 50ml (Pmx)) 50 ml @ 100 mls/hr Q8 IVPB Last administered on 06/18/17 13:08; Admin Dose 100 MLS/HR; Start at 22:00 Carvedilol (Coreg) 25 mg BID PO Last administered on 06/17/17 21:20; Admin Dose 25 MG; Start 06/17/17 at 21:00 Tamsulosin HCl (Flomax) 0.4 mg QHS PO Last administered on 06/17/17 21:20; Admin Dose 0.4 MG; Start 06/17/17 at 21:00 Pantoprazole (Protonix Tab) 40 mg DAILY@06 PO Last administered on 06/18/17 05:44; Admin Dose 40 MG; Start 06/18/17 at 06:00 Insulin Glargine (Lantus) 12 unit HS SC Last administered on 06/17/17 22:38; Admin Dose 12 UNIT; Start 06/17/17 at 21:00 Miscellaneous Information 1 ea NOTE XX ; Start 06/17/17 at 20:30 Glucose (Glutose) 15 gm Q15M PRN PO DECREASED GLUCOSE; Start 06/17/17 at 20:30 Glucose (Glutose) 22.5 gm Q15M PRN PO DECREASED GLUCOSE; Start 06/17/17 at 20: 30 Dextrose (D50w Syringe) 25 ml Q15M PRN IV DECREASED GLUCOSE; Start 06/17/17 at 20:30 Dextrose (D50w Syringe) 50 ml Q15M PRN IV DECREASED GLUCOSE; Start 06/17/17 at 20:30 Glucagon (Glucagen) 1 mg Q15M PRN IM DECREASED GLUCOSE; Start 06/17/17 at 20: 30 Glucose (Glutose) 15 gm Q15M PRN BUCCAL DECREASED GLUCOSE; Start 06/17/17 at 20:30 Miscellaneous Information (*Rx Drug Level Order Reminder*) RANDOM VANCOMYCIN LEVEL ... ONCE ONCE XX ; Start 06/19/17 at 05:00; Stop 06/19/17 at 05:01 CAYETANO DAMON MD Jun 18, 2017 13:27
[2017-06-18] MEDS ORDERED: SOD CHLORIDE 0.9% 500 ML IV ONE (14:00)
[2017-06-18] MEDS: DIGOXIN 0.125 MG TAB PO SCH (14:49)
[2017-06-18] MEDS ORDERED: INSULIN GLARGINE [LANtus] 3 ML PEN SC SCH (21:00)
[2017-06-18] MEDS: APIXABAN 5 MG TABLET PO SCH (23:15)
[2017-06-18] MEDS: TAMSULOSIN (SR) 0.4 MG CAP PO SCH (23:16)
[2017-06-18] MEDS: FAMOTIDINE 20 MG TAB PO SCH (23:16)
[2017-06-19] VITALS (11 sets, daily range): BP systolic 106–137; BP diastolic 59–78; PULSE 65–75; RESP 18–20
[2017-06-19] MEDS: ACCU-CHEK XX SCH (02:00)
[2017-06-19 06:29] LABS: BASOPHILS % 0.3 % (0.0-2.0); EOSINOPHILS # 0.2 10^3/ul (0.0-0.5); EOSINOPHILS % 2.2 % (0.0-7.0); HEMATOCRIT 32.4 % (42.0-52.0); HEMOGLOBIN 10.7 g/dl (14.0-18.0); LYMPHOCYTES # 1.2 10^3/ul (0.8-2.9); LYMPHOCYTES % 13.8 % (15.0-51.0); MEAN CORPUSCULAR HEMOGLOBIN 30.5 pg (29.0-33.0); MEAN CORPUSCULAR VOLUME 92.3 fl (82.0-101.0); MEAN PLATELET VOLUME 10.6 fl (7.4-10.4); MONOCYTE # 0.8 10^3/ul (0.3-0.9); MONOCYTES % 8.5 % (0.0-11.0); NEUTROPHIL # 6.7 10^3/ul (1.6-7.5); NEUTROPHILS % 74.8 % (39.0-77.0); PLATELET COUNT 138 10^3/UL (140-415); RED BLOOD COUNT 3.51 10^6/ul (4.70-6.10); RED CELL DISTRIBUTION WIDTH 13.2 % (11.5-14.5); WHITE BLOOD COUNT 8.9 10^3/ul (4.8-10.8)
[2017-06-19] MEDS: PIPER-TAZO 2.25 GM (PMX) 50 ML IVPB SCH ×3 (06:37→21:19)
[2017-06-19] MEDS: PANTOPRAZOLE (EC) 40 MG TAB PO SCH (06:37)
[2017-06-19] MEDS: LEVOTHYROXINE 75 MCG TAB PO SCH (06:37)
[2017-06-19] MEDS: SOD CHLORIDE 0.9% 1,000 ML IV SCH ×2 (06:46→21:08)
[2017-06-19 07:12] LABS: CALCIUM 8.2 mg/dl (8.4-10.2); CREATININE 1.86 mg/dl (0.61-1.24); POTASSIUM 4.2 mmol/L (3.5-5.1)
[2017-06-19] MEDS: INSULIN ASPART [NOVOLOG] 3 ML PEN SC SCH ×3 (08:23→17:35)
[2017-06-19] MEDS: APIXABAN 5 MG TABLET PO SCH ×2 (09:11→20:57)
[2017-06-19] MEDS: DIGOXIN 0.125 MG TAB PO SCH (12:22)
--- NOTE | 2017-06-19 14:19 | PN ---
Date/Time of Note Date/Time of Note DATE: 06/19/17 TIME: 14:17 Assessment/Plan VTE Prophylaxis VTE Prophylaxis Intervention: SCD's Lines/Catheters IV Catheter Type (from Nrsg): Saline Lock Assessment/Plan Assessment/Plan 1. Urinary tract infection, on antibiotics, improving, follow up with urine culture 2. Sepsis, resolved 3. prostate cancer, s/p radiation, on flomax 4. DM, HbA1c 10.3, lantus and ISS 5. Acute on chronic renal failure, IVF, follow up with BMP 6. Normocytic anemia, chronic, CKD related 7. Hypothyroidism, on synthroid 8. Chronic atrial fibrillation with controlled VR, on coreg, eliquis 9. HTN, hold losartan and decrease coerg due to hypotension Subjective 24 Hr Interval Summary Free Text/Dictation asymptomatic Exam/Review of Systems Vital Signs Vitals Vital Signs Date Time Temp Pulse Resp B/P Pulse Ox O2 Delivery O2 Flow Rate FiO2 06/19/17 12:09 69 06/19/17 11:44 98.2 18 111/71 96 06/17/17 20:40 Room Air 06/17/17 19:30 2.0 Intake and Output 06/18/17 06/18/17 06/19/17 15:00 23:00 07:00 Intake Total 1200 ml 1190 ml Output Total 1000 ml 1425 ml Balance 200 ml -235 ml Exam Constitutional: alert, oriented, well developed Psych: nl mood/affect, no complaints Head: atraumatic, normocephalic Eyes: EOMI, PERRL, nl conjunctiva, nl lids, nl sclera ENMT: nl external ears & nose, nl lips & teeth, nl nasal mucosa & septum Neck: non-tender, supple Respiratory: clear to auscultation, normal air movement, No congested cough, No crackles/rales, No diminished breath sounds, No intercostal retraction, No labored breathing, No other, No respirations, No tactile fremitus, No wheezing Cardiovascular: nl pulses, regular rate and rhythm, No S3, No S4, No bruits, No diastolic murmur, No edema, No gallop, No irregular rhythm, No jugular venous distention (JVD), No murmurs/extra sounds, No other, No rub, No systolic murmur Gastrointestinal: nl liver, spleen, non-tender, soft Musculoskeletal: nl extremities to inspection Extremities: normal pulses, No calf tenderness, No clubbing, No cyanosis, No edema, No other, No palpable cord, No pitting pedal edema, No tenderness Neurological: METAL PLATER II-XII intact, nl mental status, nl speech, nl strength Skin: nl turgor Lymph: nl lymph nodes Results Result Diagram: 06/19/17 0539 06/19/17 0539 Results 24 hrs Laboratory Tests Test 06/18/17 17:04 06/18/17 23:13 06/19/17 05:39 06/19/17 08:19 Bedside Glucose 240 H 187 211 White Blood Count 8.9 # Red Blood Count 3.51 L Hemoglobin 10.7 L Hematocrit 32.4 L Mean Corpuscular Volume 92.3 Mean Corpuscular Hemoglobin 30.5 Mean Corpuscular Hemoglobin Concent 33.0 Red Cell Distribution Width 13.2 Platelet Count 138 L Mean Platelet Volume 10.6 H Neutrophils % 74.8 Lymphocytes % 13.8 L Monocytes % 8.5 Eosinophils % 2.2 Basophils % 0.3 Nucleated Red Blood Cells % 0.0 Neutrophils # 6.7 Lymphocytes # 1.2 Monocytes # 0.8 Eosinophils # 0.2 Basophils # 0.0 Nucleated Red Blood Cells # 0.0 Sodium Level 142 Potassium Level 4.2 Chloride Level 114 H Carbon Dioxide Level 19 L Anion Gap 13 Blood Urea Nitrogen 34 #H Creatinine 1.86 H Glucose Level 200 Calcium Level 8.2 L Test 06/19/17 12:19 Bedside Glucose 229 H Medications Medications Current Medications Sodium Chloride (NS) 1,000 ml @ 100 mls/hr Q10H IV Last administered on t 06:46; Admin Dose 100 MLS/HR; Start 06/17/17 at 19:03 Ondansetron HCl (Zofran Inj) 4 mg Q6H PRN IV NAUSEA AND/OR VOMITING; Start at 19:30 Acetaminophen (Tylenol Tab) 650 mg Q6H PRN PO PAIN LEVEL 1-3 OR FEVER; Start 06/17/17 at 19:30 Acetaminophen/ Hydrocodone Bitart (Rulo (5/325)) 1 tab Q6H PRN PO MODERATE PAIN LEVEL 4-6; Start 06/17/17 at 19:30 Morphine Sulfate (morphine) 2 mg Q4H PRN IV SEVERE PAIN LEVEL 7-10; Start at 19:30 Docusate Sodium (Colace) 100 mg Q12H PRN PO CONSTIPATION; Start 06/17/17 at 19 :30 Bisacodyl (Dulcolax) 5 mg DAILY PRN PO CONSTIPATION; Start 06/17/17 at 19:30 Bisacodyl (Dulcolax Supp) 10 mg DAILY PRN MS CONSTIPATION; Start 06/17/17 at 19:30 Famotidine (Pepcid) 20 mg Q24H PO Last administered on 06/18/17 23:16; Admin Dose 20 MG; Start 06/17/17 at 21:00 Diagnostic Test (Pha) 1 ea 1 ea 02 XX Last administered on 06/18/17 03:03; Admin Dose 1 EA; Start 06/18/17 at 02:00 Piperacillin Sod/ Tazobactam Sod (Zosyn 2.25gm/ 50ml (Pmx)) 50 ml @ 100 mls/hr Q8 IVPB Last administered on 06/19/17 14:11; Admin Dose 100 MLS/HR; Start at 22:00 Tamsulosin HCl (Flomax) 0.4 mg QHS PO Last administered on 06/18/17 23:16; Admin Dose 0.4 MG; Start 06/17/17 at 21:00 Pantoprazole (Protonix Tab) 40 mg DAILY@06 PO Last administered on 06/19/17 06:37; Admin Dose 40 MG; Start 06/18/17 at 06:00 Miscellaneous Information 1 ea NOTE XX ; Start 06/17/17 at 20:30 Glucose (Glutose) 15 gm Q15M PRN PO DECREASED GLUCOSE; Start 06/17/17 at 20:30 Glucose (Glutose) 22.5 gm Q15M PRN PO DECREASED GLUCOSE; Start 06/17/17 at 20: 30 Dextrose (D50w Syringe) 25 ml Q15M PRN IV DECREASED GLUCOSE; Start 06/17/17 at 20:30 Dextrose (D50w Syringe) 50 ml Q15M PRN IV DECREASED GLUCOSE; Start 06/17/17 at 20:30 Glucagon (Glucagen) 1 mg Q15M PRN IM DECREASED GLUCOSE; Start 06/17/17 at 20: 30 Glucose (Glutose) 15 gm Q15M PRN BUCCAL DECREASED GLUCOSE; Start 06/17/17 at 20:30 Levothyroxine Sodium (Synthroid) 75 mcg DAILY@06 PO Last administered on 06:37; Admin Dose 75 MCG; Start 06/19/17 at 06:00 Carvedilol (Coreg) 6.25 mg BID PO Last administered on 06/19/17 09:11; Admin Dose 6.25 MG; Start 06/18/17 at 14:00 Apixaban (Eliquis) 2.5 mg BID PO Last administered on 06/19/17 09:11; Admin Dose 2.5 MG; Start 06/18/17 at 21:00 Digoxin (Digoxin) 0.125 mg DAILY@13 PO Last administered on 06/19/17 12:22; Admin Dose 0.125 MG; Start 06/18/17 at 14:00 Insulin Glargine (Lantus) 26 unit HS SC ; Start 06/19/17 at 21:00 CAYETANO DAMON MD Jun 19, 2017 14:19
[2017-06-19] MEDS: TAMSULOSIN (SR) 0.4 MG CAP PO SCH (20:57)
[2017-06-19] MEDS: FAMOTIDINE 20 MG TAB PO SCH (20:57)
[2017-06-19] MEDS ORDERED: INSULIN GLARGINE [LANtus] 3 ML PEN SC SCH (21:00)
[2017-06-20] VITALS (9 sets, daily range): BP systolic 106–141; BP diastolic 59–73; PULSE 43–79; RESP 18–20
[2017-06-20] MEDS: ACCU-CHEK XX SCH (01:24)
[2017-06-20] MEDS: SOD CHLORIDE 0.9% 1,000 ML IV SCH ×2 (02:26→10:09)
[2017-06-20] MEDS: LEVOTHYROXINE 75 MCG TAB PO SCH (05:52)
[2017-06-20] MEDS: PIPER-TAZO 2.25 GM (PMX) 50 ML IVPB SCH (05:52)
[2017-06-20] MEDS: PANTOPRAZOLE (EC) 40 MG TAB PO SCH (05:52)
[2017-06-20] MEDS: INSULIN ASPART [NOVOLOG] 3 ML PEN SC SCH ×2 (08:07→12:12)
[2017-06-20 08:52] LABS: BASOPHILS % 0.5 % (0.0-2.0); EOSINOPHILS # 0.2 10^3/ul (0.0-0.5); EOSINOPHILS % 1.9 % (0.0-7.0); HEMATOCRIT 31.2 % (42.0-52.0); HEMOGLOBIN 10.2 g/dl (14.0-18.0); LYMPHOCYTES # 1.2 10^3/ul (0.8-2.9); LYMPHOCYTES % 15.6 % (15.0-51.0); MEAN CORPUSCULAR HEMOGLOBIN 30.4 pg (29.0-33.0); MEAN CORPUSCULAR HGB CONC 32.7 g/dl (32.0-37.0); MEAN CORPUSCULAR VOLUME 92.9 fl (82.0-101.0); MEAN PLATELET VOLUME 10.7 fl (7.4-10.4); MONOCYTE # 0.5 10^3/ul (0.3-0.9); MONOCYTES % 6.6 % (0.0-11.0); NEUTROPHIL # 5.9 10^3/ul (1.6-7.5); NEUTROPHILS % 74.9 % (39.0-77.0); PLATELET COUNT 153 10^3/UL (140-415); RED BLOOD COUNT 3.36 10^6/ul (4.70-6.10); WHITE BLOOD COUNT 7.8 10^3/ul (4.8-10.8)
[2017-06-20 09:06] LABS: CALCIUM 8.5 mg/dl (8.4-10.2); CREATININE 1.59 mg/dl (0.61-1.24)
[2017-06-20] MEDS: APIXABAN 5 MG TABLET PO SCH (10:06)
[2017-06-20] MEDS ORDERED: AMOX1TAB10 PO (11:35)
[2017-06-20] MEDS ORDERED: APIX5TAB PO (11:35)
[2017-06-20] MEDS ORDERED: CARV6.2579 PO (11:35)
--- NOTE | 2017-06-20 11:47 | DS ---
Date/Time of Note Date/Time of Note DATE: 06/20/17 TIME: 11:38 Discharge Summary Admission/Discharge Info Admit Date/Time Jun 17, 2017 at 18:05 Discharge Date/Time Discharge Diagnosis 1. Urinary tract infection, stable, on antibiotics 2. Sepsis, resolved 3. prostate cancer, s/p radiation, on flomax 4. DM, HbA1c 10.3, adjust insulin per PCP 5. Acute on chronic renal failure, improving, follow up with PCP 6. Normocytic anemia, chronic, CKD related 7. Hypothyroidism, on synthroid 8. Chronic atrial fibrillation with controlled VR 9. HTN, hold losartan and decreased coerg Patient Condition: Stable Hx of Present Illness Hospital Course 72-year-old gentleman who has had 2 days of weakness chills complete body aches. No known aggravating or relieving factors. No ill contacts no travel. No sore throat. Positive headache diarrhea. No tom cough. No tom dysuria. Blood pressure went down to 80s.WBC 19,600. UA with WBC 33. Losartan is on hold, coreg is decreased. Patient has been treated with zosyn and IVF for urinary tract infection and sepsis. Symptoms improved. Leukocytosis resolved. Urine culture back as COAGULASE NEGATIVE STAPH that is sensitive to keflex. He will be discharge on keflex and follow up with PCP. Home Meds Active Scripts Amoxicillin/Potassium Clav (Amox-Clav 875-125 mg Tablet) 875-125 mg Tab, 1 TAB PO BID, #20 TAB Prov:CAYETANO DAMON MD 06/20/17 Carvedilol* (Carvedilol*) 6.25 Mg Tablet, 6.25 MG PO BID for 30 Days, TAB Prov:CAYETANO DAMON MD 06/20/17 Apixaban* (Eliquis*) 5 Mg Tablet, 2.5 MG PO BID for 30 Days, TAB Prov:CAYETANO DAMON MD 06/20/17 Reported Medications Levothyroxine Sodium* (Levothyroxine Sodium*) 75 Mcg Tablet, 75 MCG PO BEFORE BREAKFAST, #30 TAB 06/17/17 Insulin Aspart* (Novolog Insulin Pen*) 100 Unit/Ml Soln, 0 SC .SLIDING SCALE AC , EA TAKE 12 UNITS-QAM, 12 UNITS-NOON, 28 UNITS-QPM 06/17/17 Insulin Glargine* (Lantus*) 100 Unit/Ml Soln, 38 UNIT SC QHS, #1 VIAL 06/17/17 [employer] Acid Ethyl Esters (Lovaza) 1 Gm Capsule, 1 GM PO TID, CAP 06/17/17 Digoxin* (Digitek*) 125 Mcg Tablet, 0.125 MG PO DAILY, TAB 06/17/17 Tamsulosin Hcl* (Tamsulosin Hcl*) 0.4 Mg Cap.er.24h, 0.4 MG PO DAILY, CAP 06/17/17 Omeprazole* (Omeprazole*) 20 Mg Capsule.dr, 20 MG PO DAILY, #30 CAP 06/17/17 Discontinued Reported Medications Losartan Potassium* (Losartan Potassium*) 100 Mg Tablet, 100 MG PO DAILY, TAB 06/17/17 Carvedilol* (Carvedilol*) 25 Mg Tablet, 25 MG PO BID, #60 TAB 06/17/17 Apixaban* (Eliquis*) 5 Mg Tablet, 5 MG PO BID, TAB 06/17/17 [Losartan ] No Conflict Check, 100 MG PO DAILY 06/02/13 [Levothyroxine] No Conflict Check, 75 MCG PO DAILY 06/02/13 Discontinued Scripts Apixaban* (Eliquis*) 5 Mg Tablet, 5 MG PO BID for 30 Days, TAB Prov:JACINTO SNEED NP 10/18/15 Insulin Aspart* (Novolog Insulin Pen*) 100 Unit/Ml Soln, 9 UNIT SC WITH MEALS for 30 Days Prov:JACINTO SNEED NP 10/18/15 Insulin Glargine* (Lantus*) 100 Unit/Ml Soln, 24 UNIT SC HS for 30 Days Prov:JACINTO SNEED NP 10/18/15 Metformin Hcl* (Metformin Hcl*) 500 Mg Tablet, 500 MG PO BID WITH MEALS, #30 TAB Prov:JACINTO SNEED NP 10/18/15 Sitagliptin* (Januvia*) 50 Mg Tab, 100 MG PO DAILY for 30 Days, TAB Prov:JACINTO SNEED NP 10/18/15 Carvedilol* (Coreg*) 6.25 Mg Tab, 3.125 MG PO BID for 30 Days, TAB Prov:JACINTO SNEED NP 10/18/15 Atorvastatin Calcium* (Atorvastatin Calcium*) 20 Mg Tab, 20 MG PO HS for 30 Days , TAB Prov:JACINTO SNEED NP 10/18/15 Follow-up Plan PCP in one week Primary Care Provider [facility] [place] Pending Labs Laboratory Tests Test 06/19/17 12:19 06/19/17 17:31 06/19/17 21:02 06/20/17 07:37 Bedside Glucose 229mg/dL (70-220) 185mg/dL (70-220) 168mg/dL (70-220) White Blood Count 7.810^3/ul (4.8-10.8) Red Blood Count 3.3610^6/ul (4.70-6.10) Hemoglobin 10.2g/dl (14.0-18.0) Hematocrit 31.2% (42.0-52.0) Mean Corpuscular Volume 92.9fl (82.0-101.0) Mean Corpuscular Hemoglobin 30.4pg (29.0-33.0) Mean Corpuscular Hemoglobin Concent 32.7g/dl (32.0-37.0) Red Cell Distribution Width 13.0% (11.5-14.5) Platelet Count 00557^3/UL (140-415) Mean Platelet Volume 10.7fl (7.4-10.4) Neutrophils % 74.9% (39.0-77.0) Lymphocytes % 15.6% (15.0-51.0) Monocytes % 6.6% (0.0-11.0) Eosinophils % 1.9% (0.0-7.0) Basophils % 0.5% (0.0-2.0) Nucleated Red Blood Cells % 0.0/100WBC (0.0-0.0) Neutrophils # 5.910^3/ul (1.6-7.5) Lymphocytes # 1.210^3/ul (0.8-2.9) Monocytes # 0.510^3/ul (0.3-0.9) Eosinophils # 0.210^3/ul (0.0-0.5) Basophils # 0.010^3/ul (0.0-0.1) Nucleated Red Blood Cells # 0.010^3/ul (0.0-0.0) Sodium Level 141mmol/L (135-144) Potassium Level 4.0mmol/L (3.5-5.1) Chloride Level 115mmol/L (97-110) Carbon Dioxide Level 19mmol/L (21-31) Anion Gap 11 (8-16) Blood Urea Nitrogen 26mg/dl (7-20) Creatinine 1.59mg/dl (0.61-1.24) Glucose Level 194mg/dl (70-220) Calcium Level 8.5mg/dl (8.4-10.2) Test 06/20/17 08:02 Bedside Glucose 202mg/dL (70-220) CAYETANO DAMON MD Jun 20, 2017 11:47
[2017-06-20] MEDS ORDERED: CEPH500C PO (11:49)
[2017-06-20] MEDS ORDERED: CEPHALEXIN 500 MG CAP PO SCH (12:00)
[2017-06-20] MEDS: DIGOXIN 0.125 MG TAB PO SCH (13:41)
== END 2017-06-20 13:57 | disposition home or self-care (01) | DRG 871 ==
LOC: E/R 14:00 → MS4 18:05
PROVIDERS: ADMIT Hospitalist; ATTEND Hospitalist
DX: A41.9 Sepsis, unspecified organism (principal); R65.21 Severe sepsis with septic shock; N17.9 Acute kidney failure, unspecified; N39.0 Urinary tract infection, site not specified; Z85.46 Personal history of malignant neoplasm of prostate; D64.9 Anemia, unspecified; E03.9 Hypothyroidism, unspecified; I12.9 Hypertensive chronic kidney disease with stage 1 through stage 4 chronic kidney disease, or unspecified chronic kidney disease; B95.7 Other staphylococcus as the cause of diseases classified elsewhere; J44.9 Chronic obstructive pulmonary disease, unspecified
CPT/HCPCS: 36415; 71010; 74000; 74176; 80048; 80053; 80162; 81001; 82962; 83036; 83605; 83735; 84100; 84443; 84484; 85025; 85610; 85730; 87040; 87045; 87086; 87400; 93005; 96374; 96375; J1650; J1815; J2543; J3370; J7030; J7040